=== PATIENT | female | born 1935 | race Caucasian/White ===

== ENCOUNTER → 2016-08-09 | Outpatient (CLI) | payer MEDICARE, BC | END | disposition home or self-care (01) | LOC: PCVCCLINIC 13:00 | PROVIDERS: ATTEND Internal Medicine | DX: I25.10 Atherosclerotic heart disease of native coronary artery without angina pectoris (principal); I10 Essential (primary) hypertension; E78.5 Hyperlipidemia, unspecified; I65.29 Occlusion and stenosis of unspecified carotid artery; C49.A0 Gastrointestinal stromal tumor, unspecified site | CPT/HCPCS: 80061; 93005; G0463 ==

== ENCOUNTER → 2016-12-28 | Outpatient (CLI) | payer MEDICARE, BC | END | disposition home or self-care (01) | LOC: PCVCCLINIC 14:26 | PROVIDERS: ATTEND Internal Medicine | DX: I25.10 Atherosclerotic heart disease of native coronary artery without angina pectoris (principal); I10 Essential (primary) hypertension; E78.5 Hyperlipidemia, unspecified; I65.23 Occlusion and stenosis of bilateral carotid arteries; I82.409 Acute embolism and thrombosis of unspecified deep veins of unspecified lower extremity; C49.A0 Gastrointestinal stromal tumor, unspecified site; Z79.82 Long term (current) use of aspirin | CPT/HCPCS: 80061; 93005; G0463 ==

== ENCOUNTER → 2017-08-28 | Outpatient (CLI) | payer MEDICARE, BC | END | disposition home or self-care (01) | LOC: PCVCCLINIC 10:20 | DX: I25.10 Atherosclerotic heart disease of native coronary artery without angina pectoris (principal); I10 Essential (primary) hypertension; E78.5 Hyperlipidemia, unspecified; I65.23 Occlusion and stenosis of bilateral carotid arteries; C49.A0 Gastrointestinal stromal tumor, unspecified site; C37 Malignant neoplasm of thymus; Z79.82 Long term (current) use of aspirin | CPT/HCPCS: 80061; 93005; G0463 ==

== ENCOUNTER → 2018-03-04 | Outpatient (CLI) | payer MEDICARE, BC | END | disposition home or self-care (01) | LOC: PCVCCLINIC 11:00 | PROVIDERS: ATTEND Internal Medicine | DX: I25.10 Atherosclerotic heart disease of native coronary artery without angina pectoris (principal); C49.A0 Gastrointestinal stromal tumor, unspecified site; C37 Malignant neoplasm of thymus; I10 Essential (primary) hypertension; E78.5 Hyperlipidemia, unspecified; I65.23 Occlusion and stenosis of bilateral carotid arteries; I63.9 Cerebral infarction, unspecified; Z79.82 Long term (current) use of aspirin | CPT/HCPCS: 80061; 93005; G0463 ==

== ENCOUNTER → 2018-09-05 | Outpatient (CLI) | payer MEDICARE, BC | END | disposition home or self-care (01) | LOC: PCVCCLINIC 10:00 | PROVIDERS: ATTEND Internal Medicine | DX: I25.10 Atherosclerotic heart disease of native coronary artery without angina pectoris (principal); I10 Essential (primary) hypertension; I65.23 Occlusion and stenosis of bilateral carotid arteries; E78.5 Hyperlipidemia, unspecified; C37 Malignant neoplasm of thymus; C49.A0 Gastrointestinal stromal tumor, unspecified site; R94.31 Abnormal electrocardiogram [ECG] [EKG]; Z88.8 Allergy status to other drugs, medicaments and biological substances; Z79.82 Long term (current) use of aspirin; Z79.899 Other long term (current) drug therapy | CPT/HCPCS: 36415; 80061; 93005; G0463 ==

== ENCOUNTER → 2019-03-11 | Outpatient (CLI) | payer MEDICARE, BC ==
--- NOTE | 2019-03-11 10:19 | PCVCIMAG ---
APPROVED REPORT Study performed: 03/11/2019 09:04:15 EXAM: Comprehensive 2D, Doppler, and color-flow Echocardiogram Patient Location: Echo lab Status: routine BSA: 1.61 HR: 67 bpmBP: 130/80 mmHg Rhythm: NSR Other Information Study Quality: Technically Difficult Risk Factors: Cardiac Risk Factors: HTN Indications CAD 2D Dimensions IVSd: 15.67 (7-11mm)LVOT Diam: 21.28 (18-24mm) LVDd: 30.89 mm PWd: 12.87 (7-11mm)Ascending Ao: 36.67 (22-36mm) LVDs: 27.09 (25-40mm) Left Atrium: 34.06 (27-40mm) Aortic Root: 32.09 mm LV Single Plane 4CH: 68.14 % LV Single Plane 2CH: 60.46 % Volumes Left Atrial Volume (Systole) Single Plane 4CH: 24.25 mLSingle Plane 2CH: 20.04 mL LA ESV Index: 16.00 mL/m2 Aortic Valve AoV Peak Te.: 1.25 m/s AO Peak Gr.: 6.24 mmHgLVOT Max P.90 mmHg LVOT Max V: 0.85 m/s [place] Vmax: 2.42 cm2 Mitral Valve E/A Ratio: 0.6 MV Decel. Time: 223.15 ms MV E Max Te.: 0.49 m/s MV A Te.: 0.84 m/s IVRT: 183.39 ms TDI E/Lateral E': 8.17E/Medial E': 12.25 Medial E' Te.: 0.04 m/s Lateral E' Te.: 0.06 m/s Pulmonary Valve PV Peak Gr.: 1.39 mmHg Pulmonary Vein P Vein S: 0.52 m/sP Vein A: 0.33 m/s P Vein D: 0.30 m/sP Vein A Dur.: 90.0 msec P Vein S/D Ratio: 1.73 Left Ventricle The left ventricle is normal size. There is normal LV segmental wall motion. Mild concentric left ventricular hypertrophy. Left ventricular systolic function is normal. The left ventricular ejection fraction is within the normal range. LVEF is 55-60%. Mild diastolic dysfunction is present (impaired relaxation pattern). Right Ventricle The right ventricle is normal size. The right ventricular systolic function is normal. Atria The left atrium size is normal. The right atrium size is normal. Aortic Valve The aortic valve is calcified. No aortic regurgitation is present. There is no aortic valvular stenosis. Mitral Valve Mild mitral annular calcification. There is no mitral valve regurgitation noted. No evidence of mitral valve stenosis. Tricuspid Valve The tricuspid valve is normal in structure. There is no tricuspid valve regurgitation noted. Pulmonic Valve The pulmonary valve is normal in structure. There is no pulmonic valvular regurgitation. Great Vessels The aortic root is normal in size. IVC is normal in size and collapses >50% with inspiration. Pericardium There is no pericardial effusion. <Conclusion> Left ventricular systolic function is normal. There is normal LV segmental wall motion. LVEF is 55-60%. Mild diastolic dysfunction The aortic valve is calcified. No aortic regurgitation or stenosis. Mild mitral annular calcification. No mitral valve regurgitation Pulmonary artery systolic pressure could not be reliably ascertained There is no pericardial effusion.
== END | disposition home or self-care (01) ==
LOC: PCVCIMAG 09:00
PROVIDERS: ATTEND Internal Medicine
DX: I25.10 Atherosclerotic heart disease of native coronary artery without angina pectoris (principal); I08.0 Rheumatic disorders of both mitral and aortic valves; I10 Essential (primary) hypertension; E78.5 Hyperlipidemia, unspecified; I65.23 Occlusion and stenosis of bilateral carotid arteries; C49.A0 Gastrointestinal stromal tumor, unspecified site; C37 Malignant neoplasm of thymus; Z79.82 Long term (current) use of aspirin
CPT/HCPCS: 36415; 80061; 93005; 93306; G0463

== ENCOUNTER → 2019-04-01 | Outpatient (CLI) | payer MEDICARE, BC ==
[~2019-04-01] MED LIST: REGADENOSON 0.4 MG/5 ML DISP.SYRIN. IV ONE
--- NOTE | 2019-04-01 16:31 | PCVCIMAG ---
APPROVED REPORT Imaging Protocol: Rest Tc-99m/Stress Tc-99m 1 day Study performed: 04/01/2019 09:12:58 Indication: Chest pain, CAD Patient Location: Out-Patient Stress Nurse: Lara Colón RN, TREY Chisholm Tech:Matt ZapataMOSES Ht: 5 ft 3 in Wt: 130 lbs BSA: 1.61 m2 HR: 75 bpm BP: 172/80 mmHg BMI: 23.0 Rhythm: Sinus Rhythm Medical History Medical History: Age, Hyperlipidemia, HTN, CVD, CAD Medications: ASA, Atorvastatin, Cardua, Metoprolol Allergies: Many Resting Data Rest SPECT myocardial perfusion imaging was performed in supine position 45 minutes following the intravenous injection of 11.8 mCi of Tc-99m Sestamibi. Time of rest injection: 924 Date: 04/01/2019 Administration Route: IV Administration Site: Right AC Pharmacologic Stress Pharmacologic stress test was performed by injecting Regadenoson 0.4 mg IV push over 10-15 seconds immediately followed by the intravenous injection of 34.5 mCi of Tc-99m Sestamibi. Time of stress injection: 1029 Date: 04/01/2019 Administration Route: IV Administration Site: Right AC Gated Stress SPECT was performed 45 minutes after stress injection. The images were gated to evaluate regional wall motion and calculate left ventricular ejection fraction. Stress Test Details Stress Test: Pharmacologic stress testing performed using 0.4 mg of regadenoson per 5 mL given IV over 10 seconds. HRMax Heart Rate (APMHR): 137 bpm Resting HR: 75 bpmTarget HR (85% APMHR): 116 bpm Max HR Achieved: 133 bpm % of APMHR: 97 Recovery HR: 120 bpm BP Resting BP: 172/80 mmHg Max BP: 108/66 mmHg Recovery BP: 130/78 mmHg ECG Resting ECG: Sinus Rhythm Stress ECG: Sinus Tachycardia ST Change: None Maximum ST Deviation: 0 mm Arrhythmia: None Recovery ECG: Sinus Rhythm Recovery ST Change: Normal Recovery ST Deviation: 0 mm Recovery Arrhythmia: None Clinical Reason for Termination: Completed protocol Stress Symptoms: Headache, Lightheaded, Dizzy, Near Syncope Symptoms resolved during recovery. Near syncope, Pt recovered very slowly Stress ECG Conclusion ECG: Non-ischemic Clinical: Non-ischemic Study Quality Study: Good Study Data Post stress, the left ventricular ejection was 68%.. SSS: 8 SRS: 13 SDS: 1 TID = 0.79. Perfusion No evidence of stress induced ischemia. 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 Nuclear Conclusion No evidence of stress induced ischemia. 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 Post stress, the left ventricular ejection was 68%. No prior study available for comparison. Interpreted by: Butch Jose MD Electronically Approved: 04/01/2019 15:03:09 <Conclusion> ECG: Non-ischemic Clinical: Non-ischemic
== END | disposition home or self-care (01) ==
LOC: PCVCIMAG 08:59
PROVIDERS: ATTEND Internal Medicine
DX: I25.10 Atherosclerotic heart disease of native coronary artery without angina pectoris (principal); E78.5 Hyperlipidemia, unspecified; I10 Essential (primary) hypertension; R00.0 Tachycardia, unspecified; Z88.5 Allergy status to narcotic agent; Z88.8 Allergy status to other drugs, medicaments and biological substances
CPT/HCPCS: 78452; 93017; A9500; J2785